=== PATIENT | female | born 1980 | race Caucasian/White ===

== ENCOUNTER 2018-09-16 23:32 | Emergency (ER) | payer OTHER ==
[~2018-09-16] VITALS: Ht 167.6 cm; Wt 67.1 kg
[2018-09-17] MEDS ORDERED: FLONASE ALLERG9.9 ML NASAL (05:55)
== END 2018-09-17 06:09 | disposition home or self-care (01) ==
LOC: ER 23:32
DX: S00.33XA Contusion of nose, initial encounter (principal); W18.39XA Other fall on same level, initial encounter; Y93.89 Activity, other specified; Y92.89 Other specified places as the place of occurrence of the external cause; Y99.8 Other external cause status